=== PATIENT | male | born 1955 | race Caucasian/White ===

== ENCOUNTER → 2018-05-10 | Outpatient (CLI) | payer BC | LOC: HYPER 05-08 12:07 | DX: E11.622 Type 2 diabetes mellitus with other skin ulcer (principal); L97.812 Non-pressure chronic ulcer of other part of right lower leg with fat layer exposed; L84 Corns and callosities; D48.5 Neoplasm of uncertain behavior of skin; M19.90 Unspecified osteoarthritis, unspecified site ==

== ENCOUNTER → 2018-05-17 | Outpatient (CLI) | payer BC | LOC: HYPER 06:57 | DX: E11.622 Type 2 diabetes mellitus with other skin ulcer (principal); L97.812 Non-pressure chronic ulcer of other part of right lower leg with fat layer exposed; S60.321D Blister (nonthermal) of right thumb, subsequent encounter; L84 Corns and callosities; M19.90 Unspecified osteoarthritis, unspecified site; D48.5 Neoplasm of uncertain behavior of skin; X58.XXXD Exposure to other specified factors, subsequent encounter ==

== ENCOUNTER → 2018-05-31 | Outpatient (CLI) | payer BC | LOC: HYPER 06:49 | DX: E11.622 Type 2 diabetes mellitus with other skin ulcer (principal); L97.812 Non-pressure chronic ulcer of other part of right lower leg with fat layer exposed; S60.321D Blister (nonthermal) of right thumb, subsequent encounter; S60.420A Blister (nonthermal) of right index finger, initial encounter; L84 Corns and callosities; D48.5 Neoplasm of uncertain behavior of skin; M19.90 Unspecified osteoarthritis, unspecified site; X58.XXXA Exposure to other specified factors, initial encounter; Y93.89 Activity, other specified; Y92.89 Other specified places as the place of occurrence of the external cause; Y99.8 Other external cause status ==

== ENCOUNTER → 2018-06-14 | Outpatient (CLI) | payer BC | LOC: HYPER 06:38 | DX: E11.622 Type 2 diabetes mellitus with other skin ulcer (principal); L97.812 Non-pressure chronic ulcer of other part of right lower leg with fat layer exposed; S60.321D Blister (nonthermal) of right thumb, subsequent encounter; S60.424 Blister (nonthermal) of right ring finger; M19.90 Unspecified osteoarthritis, unspecified site; D48.5 Neoplasm of uncertain behavior of skin; X58.XXXD Exposure to other specified factors, subsequent encounter ==

== ENCOUNTER → 2018-06-28 | Outpatient (CLI) | payer BC | LOC: HYPER 07:04 | DX: E11.622 Type 2 diabetes mellitus with other skin ulcer (principal); L97.812 Non-pressure chronic ulcer of other part of right lower leg with fat layer exposed; S60.321D Blister (nonthermal) of right thumb, subsequent encounter; S60.420D Blister (nonthermal) of right index finger, subsequent encounter; R21 Rash and other nonspecific skin eruption; D48.5 Neoplasm of uncertain behavior of skin; L84 Corns and callosities; M19.90 Unspecified osteoarthritis, unspecified site; X58.XXXD Exposure to other specified factors, subsequent encounter ==

== ENCOUNTER → 2018-07-12 | Outpatient (CLI) | payer BC | LOC: HYPER 06:44 | DX: E11.622 Type 2 diabetes mellitus with other skin ulcer (principal); L97.812 Non-pressure chronic ulcer of other part of right lower leg with fat layer exposed; S60.424 Blister (nonthermal) of right ring finger; S60.321D Blister (nonthermal) of right thumb, subsequent encounter; D48.5 Neoplasm of uncertain behavior of skin; L84 Corns and callosities; M19.90 Unspecified osteoarthritis, unspecified site; X58.XXXD Exposure to other specified factors, subsequent encounter ==

== ENCOUNTER → 2018-07-26 | Outpatient (CLI) | payer BC | LOC: HYPER 06:50 | DX: E11.622 Type 2 diabetes mellitus with other skin ulcer (principal); L97.812 Non-pressure chronic ulcer of other part of right lower leg with fat layer exposed; R21 Rash and other nonspecific skin eruption; D48.5 Neoplasm of uncertain behavior of skin; M19.90 Unspecified osteoarthritis, unspecified site ==

== ENCOUNTER → 2018-08-09 | Outpatient (CLI) | payer BC | LOC: HYPER 06:49 | DX: E11.622 Type 2 diabetes mellitus with other skin ulcer (principal); L97.822 Non-pressure chronic ulcer of other part of left lower leg with fat layer exposed; R21 Rash and other nonspecific skin eruption; D48.5 Neoplasm of uncertain behavior of skin; M19.90 Unspecified osteoarthritis, unspecified site ==

== ENCOUNTER → 2018-08-23 | Outpatient (CLI) | payer BC | LOC: HYPER 06:42 | DX: E11.622 Type 2 diabetes mellitus with other skin ulcer (principal); L97.812 Non-pressure chronic ulcer of other part of right lower leg with fat layer exposed; L97.311 Non-pressure chronic ulcer of right ankle limited to breakdown of skin; R21 Rash and other nonspecific skin eruption; D48.5 Neoplasm of uncertain behavior of skin; M19.90 Unspecified osteoarthritis, unspecified site ==

== ENCOUNTER → 2018-08-30 | Outpatient (CLI) | payer BC | LOC: HYPER 06:41 | DX: E11.622 Type 2 diabetes mellitus with other skin ulcer (principal); L97.311 Non-pressure chronic ulcer of right ankle limited to breakdown of skin; L97.811 Non-pressure chronic ulcer of other part of right lower leg limited to breakdown of skin; S60.321D Blister (nonthermal) of right thumb, subsequent encounter; S60.424 Blister (nonthermal) of right ring finger; D48.5 Neoplasm of uncertain behavior of skin; M19.90 Unspecified osteoarthritis, unspecified site; R21 Rash and other nonspecific skin eruption; X58.XXXD Exposure to other specified factors, subsequent encounter ==

== ENCOUNTER → 2018-09-05 | Outpatient (CLI) | payer BC | LOC: HYPER 06:32 | DX: E11.621 Type 2 diabetes mellitus with foot ulcer (principal); E11.622 Type 2 diabetes mellitus with other skin ulcer; L97.311 Non-pressure chronic ulcer of right ankle limited to breakdown of skin; L97.812 Non-pressure chronic ulcer of other part of right lower leg with fat layer exposed; S61.001D Unspecified open wound of right thumb without damage to nail, subsequent encounter; D48.5 Neoplasm of uncertain behavior of skin; M19.90 Unspecified osteoarthritis, unspecified site; R21 Rash and other nonspecific skin eruption; X58.XXXD Exposure to other specified factors, subsequent encounter ==

== ENCOUNTER → 2018-09-20 | Outpatient (CLI) | payer BC | LOC: HYPER 06:48 | DX: E11.622 Type 2 diabetes mellitus with other skin ulcer (principal); L97.812 Non-pressure chronic ulcer of other part of right lower leg with fat layer exposed; L97.311 Non-pressure chronic ulcer of right ankle limited to breakdown of skin; S60.424 Blister (nonthermal) of right ring finger; S60.321D Blister (nonthermal) of right thumb, subsequent encounter; R21 Rash and other nonspecific skin eruption; M19.90 Unspecified osteoarthritis, unspecified site; D48.5 Neoplasm of uncertain behavior of skin; X58.XXXD Exposure to other specified factors, subsequent encounter ==

== ENCOUNTER → 2018-09-27 | Outpatient (CLI) | payer BC | LOC: HYPER 06:57 | DX: E11.622 Type 2 diabetes mellitus with other skin ulcer (principal); L97.812 Non-pressure chronic ulcer of other part of right lower leg with fat layer exposed; S60.424 Blister (nonthermal) of right ring finger; S60.321D Blister (nonthermal) of right thumb, subsequent encounter; R21 Rash and other nonspecific skin eruption; D48.5 Neoplasm of uncertain behavior of skin; M19.90 Unspecified osteoarthritis, unspecified site; X58.XXXD Exposure to other specified factors, subsequent encounter ==

== ENCOUNTER → 2018-10-18 | Outpatient (CLI) | payer BC | LOC: HYPER 06:38 | DX: E11.622 Type 2 diabetes mellitus with other skin ulcer (principal); L97.312 Non-pressure chronic ulcer of right ankle with fat layer exposed; L97.812 Non-pressure chronic ulcer of other part of right lower leg with fat layer exposed; S60.424 Blister (nonthermal) of right ring finger; S60.321D Blister (nonthermal) of right thumb, subsequent encounter; L84 Corns and callosities; D48.5 Neoplasm of uncertain behavior of skin; M19.90 Unspecified osteoarthritis, unspecified site; R21 Rash and other nonspecific skin eruption; X58.XXXD Exposure to other specified factors, subsequent encounter ==

== ENCOUNTER → 2018-11-06 | Outpatient (CLI) | payer BC | LOC: HYPER 07:05 | DX: E11.622 Type 2 diabetes mellitus with other skin ulcer (principal); L97.812 Non-pressure chronic ulcer of other part of right lower leg with fat layer exposed; L97.311 Non-pressure chronic ulcer of right ankle limited to breakdown of skin; S60.424 Blister (nonthermal) of right ring finger; S60.321D Blister (nonthermal) of right thumb, subsequent encounter; D48.5 Neoplasm of uncertain behavior of skin; L84 Corns and callosities; R21 Rash and other nonspecific skin eruption; M19.90 Unspecified osteoarthritis, unspecified site; X58.XXXD Exposure to other specified factors, subsequent encounter ==

== ENCOUNTER → 2018-11-22 | Outpatient (CLI) | payer BC | LOC: HYPER 06:57 | DX: E11.622 Type 2 diabetes mellitus with other skin ulcer (principal); L97.812 Non-pressure chronic ulcer of other part of right lower leg with fat layer exposed; L97.312 Non-pressure chronic ulcer of right ankle with fat layer exposed; L84 Corns and callosities; R21 Rash and other nonspecific skin eruption; D48.5 Neoplasm of uncertain behavior of skin; M19.90 Unspecified osteoarthritis, unspecified site ==

== ENCOUNTER → 2018-12-06 | Outpatient (CLI) | payer BC | LOC: HYPER 07:36 | DX: E11.622 Type 2 diabetes mellitus with other skin ulcer (principal); L97.812 Non-pressure chronic ulcer of other part of right lower leg with fat layer exposed; L97.312 Non-pressure chronic ulcer of right ankle with fat layer exposed; L84 Corns and callosities; D48.5 Neoplasm of uncertain behavior of skin; M19.90 Unspecified osteoarthritis, unspecified site; R21 Rash and other nonspecific skin eruption ==

== ENCOUNTER → 2018-12-27 | Outpatient (CLI) | payer BC | LOC: HYPER 10:15 | DX: E11.622 Type 2 diabetes mellitus with other skin ulcer (principal); L97.812 Non-pressure chronic ulcer of other part of right lower leg with fat layer exposed; L97.312 Non-pressure chronic ulcer of right ankle with fat layer exposed; D48.5 Neoplasm of uncertain behavior of skin; L84 Corns and callosities; M19.90 Unspecified osteoarthritis, unspecified site; R21 Rash and other nonspecific skin eruption ==

== ENCOUNTER → 2019-01-17 | Outpatient (CLI) | payer BC | LOC: HYPER 11:22 | DX: E11.622 Type 2 diabetes mellitus with other skin ulcer (principal); L97.812 Non-pressure chronic ulcer of other part of right lower leg with fat layer exposed; L97.312 Non-pressure chronic ulcer of right ankle with fat layer exposed; L84 Corns and callosities; D48.5 Neoplasm of uncertain behavior of skin; M19.90 Unspecified osteoarthritis, unspecified site; R21 Rash and other nonspecific skin eruption ==

== ENCOUNTER → 2019-02-08 | Outpatient (CLI) | payer BC | LOC: HYPER 08:32 | DX: E11.622 Type 2 diabetes mellitus with other skin ulcer (principal); L97.812 Non-pressure chronic ulcer of other part of right lower leg with fat layer exposed; L97.312 Non-pressure chronic ulcer of right ankle with fat layer exposed; D48.5 Neoplasm of uncertain behavior of skin; M19.90 Unspecified osteoarthritis, unspecified site; R21 Rash and other nonspecific skin eruption ==

== ENCOUNTER → 2019-03-14 | Outpatient (CLI) | payer BC | LOC: HYPER 10:05 | DX: E11.622 Type 2 diabetes mellitus with other skin ulcer (principal); L97.312 Non-pressure chronic ulcer of right ankle with fat layer exposed; L97.812 Non-pressure chronic ulcer of other part of right lower leg with fat layer exposed; R21 Rash and other nonspecific skin eruption; D48.5 Neoplasm of uncertain behavior of skin; M19.90 Unspecified osteoarthritis, unspecified site ==

== ENCOUNTER → 2019-03-28 | Outpatient (CLI) | payer BC | LOC: HYPER 09:56 | DX: E11.622 Type 2 diabetes mellitus with other skin ulcer (principal); L97.812 Non-pressure chronic ulcer of other part of right lower leg with fat layer exposed; L97.312 Non-pressure chronic ulcer of right ankle with fat layer exposed; S80.11XD Contusion of right lower leg, subsequent encounter; R21 Rash and other nonspecific skin eruption; D48.5 Neoplasm of uncertain behavior of skin; M19.90 Unspecified osteoarthritis, unspecified site; X58.XXXD Exposure to other specified factors, subsequent encounter ==

== ENCOUNTER → 2019-04-11 | Outpatient (CLI) | payer BC | LOC: HYPER 09:52 | DX: E11.622 Type 2 diabetes mellitus with other skin ulcer (principal); L97.312 Non-pressure chronic ulcer of right ankle with fat layer exposed; L97.812 Non-pressure chronic ulcer of other part of right lower leg with fat layer exposed; R21 Rash and other nonspecific skin eruption; D48.5 Neoplasm of uncertain behavior of skin; M19.90 Unspecified osteoarthritis, unspecified site ==

== ENCOUNTER → 2019-04-25 | Outpatient (CLI) | payer BC | LOC: HYPER 10:04 | DX: S81.802A Unspecified open wound, left lower leg, initial encounter (principal); E11.622 Type 2 diabetes mellitus with other skin ulcer; L97.812 Non-pressure chronic ulcer of other part of right lower leg with fat layer exposed; L97.312 Non-pressure chronic ulcer of right ankle with fat layer exposed; D48.5 Neoplasm of uncertain behavior of skin; R21 Rash and other nonspecific skin eruption; X58.XXXA Exposure to other specified factors, initial encounter; Y93.89 Activity, other specified; Y92.89 Other specified places as the place of occurrence of the external cause; Y99.8 Other external cause status; M19.90 Unspecified osteoarthritis, unspecified site ==

== ENCOUNTER → 2019-05-09 | Outpatient (CLI) | payer BC | LOC: HYPER 10:24 | DX: E11.622 Type 2 diabetes mellitus with other skin ulcer (principal); L97.812 Non-pressure chronic ulcer of other part of right lower leg with fat layer exposed; L97.312 Non-pressure chronic ulcer of right ankle with fat layer exposed; L97.211 Non-pressure chronic ulcer of right calf limited to breakdown of skin; R21 Rash and other nonspecific skin eruption; D48.5 Neoplasm of uncertain behavior of skin; M19.90 Unspecified osteoarthritis, unspecified site ==

== ENCOUNTER → 2019-05-23 | Outpatient (CLI) | payer BC | LOC: HYPER 09:37 | DX: E11.622 Type 2 diabetes mellitus with other skin ulcer (principal); L97.312 Non-pressure chronic ulcer of right ankle with fat layer exposed; L97.211 Non-pressure chronic ulcer of right calf limited to breakdown of skin; L97.822 Non-pressure chronic ulcer of other part of left lower leg with fat layer exposed; S80.11XD Contusion of right lower leg, subsequent encounter; L84 Corns and callosities; R21 Rash and other nonspecific skin eruption; D48.5 Neoplasm of uncertain behavior of skin; M19.90 Unspecified osteoarthritis, unspecified site; W22.8XXD Striking against or struck by other objects, subsequent encounter ==

== ENCOUNTER → 2019-06-06 | Outpatient (CLI) | payer BC | LOC: HYPER 09:32 | DX: E11.622 Type 2 diabetes mellitus with other skin ulcer (principal); L97.822 Non-pressure chronic ulcer of other part of left lower leg with fat layer exposed; L97.312 Non-pressure chronic ulcer of right ankle with fat layer exposed; L97.212 Non-pressure chronic ulcer of right calf with fat layer exposed; S80.11XD Contusion of right lower leg, subsequent encounter; L84 Corns and callosities; R21 Rash and other nonspecific skin eruption; M19.90 Unspecified osteoarthritis, unspecified site; D48.5 Neoplasm of uncertain behavior of skin; X58.XXXD Exposure to other specified factors, subsequent encounter ==

== ENCOUNTER → 2019-06-20 | Outpatient (CLI) | payer BC | LOC: HYPER 09:43 | DX: E11.622 Type 2 diabetes mellitus with other skin ulcer (principal); L97.822 Non-pressure chronic ulcer of other part of left lower leg with fat layer exposed; L97.312 Non-pressure chronic ulcer of right ankle with fat layer exposed; L97.212 Non-pressure chronic ulcer of right calf with fat layer exposed; S80.11XD Contusion of right lower leg, subsequent encounter; L84 Corns and callosities; R21 Rash and other nonspecific skin eruption; D48.5 Neoplasm of uncertain behavior of skin; M19.90 Unspecified osteoarthritis, unspecified site; X58.XXXD Exposure to other specified factors, subsequent encounter ==

== ENCOUNTER → 2019-07-08 | Outpatient (CLI) | payer BC | LOC: HYPER 14:39 | DX: E11.622 Type 2 diabetes mellitus with other skin ulcer (principal); L97.812 Non-pressure chronic ulcer of other part of right lower leg with fat layer exposed; L97.312 Non-pressure chronic ulcer of right ankle with fat layer exposed; L97.822 Non-pressure chronic ulcer of other part of left lower leg with fat layer exposed; L97.211 Non-pressure chronic ulcer of right calf limited to breakdown of skin; D48.5 Neoplasm of uncertain behavior of skin; R21 Rash and other nonspecific skin eruption; L84 Corns and callosities; M19.90 Unspecified osteoarthritis, unspecified site ==

== ENCOUNTER → 2019-07-25 | Outpatient (CLI) | payer BC | LOC: HYPER 08:34 | DX: E11.622 Type 2 diabetes mellitus with other skin ulcer (principal); L97.212 Non-pressure chronic ulcer of right calf with fat layer exposed; L97.312 Non-pressure chronic ulcer of right ankle with fat layer exposed; L97.822 Non-pressure chronic ulcer of other part of left lower leg with fat layer exposed; S80.11XD Contusion of right lower leg, subsequent encounter; L84 Corns and callosities; R21 Rash and other nonspecific skin eruption; D48.5 Neoplasm of uncertain behavior of skin; M19.90 Unspecified osteoarthritis, unspecified site; X58.XXXD Exposure to other specified factors, subsequent encounter ==

== ENCOUNTER 2019-08-22 11:28 | Emergency (ER) | payer BC ==
[~2019-08-22] VITALS: Ht 185.4 cm; Wt 113.4 kg
[2019-08-22] MEDS ORDERED: PEN NEEDLE1 EAC4 (11:53)
[2019-08-22] MEDS ORDERED: HUMALOG KW100 UNIT/1 SUBQ (11:53)
[2019-08-22 13:36] VITALS: BP 179/113
--- NOTE | 2019-08-24 11:44 | EKG ---
[facility] [place] [address] ELECTROCARDIOGRAM REPORT Name: GEOFFIJEOMA Evangelista Room #: DEP [facility]#: [id number] Admission: 08/22/19 Attend Phys: Discharge: 08/22/19 Date of : 51 Report #: [id number] THIS REPORT FOR: cc: Belinda Rock MD, Julie MD Couchonnal,Trey Carlos MD ~ THIS REPORT FOR: //name// [facility] ED Test Date: 2019-08-22 Test Time: 11:35:03 Pat Name: IJEOMA TELLEZ Department: Room: Gender: [employer]: [facility] : 1955 Requested By: Richard Sanchez Order Number: [id number] MD: Trey Disla Measurements Intervals Noti Rate: 96 P: 28 AK: 144 QRS: 4 QRSD: 90 T: 136 QT: 373 QTc: 472 Interpretive Statements Sinus rhythm Left atrial enlargement Anteroseptal infarct, old No previous ECG available for comparison Electronically Signed On 08-24-2019 11:43:03 CDT by Trey Disla [email or web address] <ELECTRONICALLY SIGNED> By: Trey Disla MD 08/24/19 1143 [id number] 1135 Trey Disla MD /EPI
== END 2019-08-22 13:40 | disposition home or self-care (01) ==
LOC: ER 11:28
DX: E11.649 Type 2 diabetes mellitus with hypoglycemia without coma (principal); I10 Essential (primary) hypertension; R41.0 Disorientation, unspecified; Z79.4 Long term (current) use of insulin

== ENCOUNTER → 2019-08-22 | Outpatient (CLI) | payer BC ==
[~2019-08-22] MED LIST: HUMALOG KW100 UNIT/1 SUBQ; PEN NEEDLE1 EAC4
== END ==
LOC: HYPER 09:37
PROVIDERS: ATTEND Emergency Medicine
DX: E11.622 Type 2 diabetes mellitus with other skin ulcer (principal); L97.812 Non-pressure chronic ulcer of other part of right lower leg with fat layer exposed; L97.822 Non-pressure chronic ulcer of other part of left lower leg with fat layer exposed; L97.312 Non-pressure chronic ulcer of right ankle with fat layer exposed; L97.211 Non-pressure chronic ulcer of right calf limited to breakdown of skin; S80.11XD Contusion of right lower leg, subsequent encounter; D48.5 Neoplasm of uncertain behavior of skin; R21 Rash and other nonspecific skin eruption; M19.90 Unspecified osteoarthritis, unspecified site; X58.XXXD Exposure to other specified factors, subsequent encounter

== ENCOUNTER → 2019-10-02 | Outpatient (CLI) | payer BC | LOC: HYPER 10:40 | PROVIDERS: ATTEND Emergency Medicine | DX: E11.622 Type 2 diabetes mellitus with other skin ulcer (principal); L97.212 Non-pressure chronic ulcer of right calf with fat layer exposed; L97.312 Non-pressure chronic ulcer of right ankle with fat layer exposed; L97.822 Non-pressure chronic ulcer of other part of left lower leg with fat layer exposed; S80.11XD Contusion of right lower leg, subsequent encounter; L84 Corns and callosities; R21 Rash and other nonspecific skin eruption; D48.5 Neoplasm of uncertain behavior of skin; M19.90 Unspecified osteoarthritis, unspecified site; X58.XXXD Exposure to other specified factors, subsequent encounter ==

== ENCOUNTER → 2019-10-16 | Outpatient (CLI) | payer BC | LOC: HYPER 09:04 | PROVIDERS: ATTEND Emergency Medicine Emergency Medical Services | DX: E11.622 Type 2 diabetes mellitus with other skin ulcer (principal); L97.212 Non-pressure chronic ulcer of right calf with fat layer exposed; L97.312 Non-pressure chronic ulcer of right ankle with fat layer exposed; L97.822 Non-pressure chronic ulcer of other part of left lower leg with fat layer exposed; S80.11XD Contusion of right lower leg, subsequent encounter; L84 Corns and callosities; R21 Rash and other nonspecific skin eruption; D48.5 Neoplasm of uncertain behavior of skin; M19.90 Unspecified osteoarthritis, unspecified site; X58.XXXD Exposure to other specified factors, subsequent encounter ==

== ENCOUNTER → 2019-10-31 | Outpatient (CLI) | payer BC | LOC: HYPER 09:29 | PROVIDERS: ATTEND Emergency Medicine | DX: E11.622 Type 2 diabetes mellitus with other skin ulcer (principal); L97.212 Non-pressure chronic ulcer of right calf with fat layer exposed; L97.312 Non-pressure chronic ulcer of right ankle with fat layer exposed; L97.822 Non-pressure chronic ulcer of other part of left lower leg with fat layer exposed; S80.11XD Contusion of right lower leg, subsequent encounter; S81.802D Unspecified open wound, left lower leg, subsequent encounter; L84 Corns and callosities; R21 Rash and other nonspecific skin eruption; D48.5 Neoplasm of uncertain behavior of skin; M19.90 Unspecified osteoarthritis, unspecified site; X58.XXXD Exposure to other specified factors, subsequent encounter ==

== ENCOUNTER → 2019-12-05 | Outpatient (CLI) | payer BC | LOC: HYPER 09:50 | PROVIDERS: ATTEND Emergency Medicine | DX: E11.622 Type 2 diabetes mellitus with other skin ulcer (principal); L97.812 Non-pressure chronic ulcer of other part of right lower leg with fat layer exposed; L97.312 Non-pressure chronic ulcer of right ankle with fat layer exposed; L97.212 Non-pressure chronic ulcer of right calf with fat layer exposed; L97.822 Non-pressure chronic ulcer of other part of left lower leg with fat layer exposed; S80.11XD Contusion of right lower leg, subsequent encounter; R21 Rash and other nonspecific skin eruption; L84 Corns and callosities; D48.5 Neoplasm of uncertain behavior of skin; I87.8 Other specified disorders of veins; M19.90 Unspecified osteoarthritis, unspecified site; X58.XXXD Exposure to other specified factors, subsequent encounter ==

== ENCOUNTER → 2019-12-26 | Outpatient (CLI) | payer BC | LOC: HYPER 09:23 | PROVIDERS: ATTEND Emergency Medicine | DX: E11.622 Type 2 diabetes mellitus with other skin ulcer (principal); L97.212 Non-pressure chronic ulcer of right calf with fat layer exposed; L97.312 Non-pressure chronic ulcer of right ankle with fat layer exposed; L97.822 Non-pressure chronic ulcer of other part of left lower leg with fat layer exposed; S80.11XD Contusion of right lower leg, subsequent encounter; R21 Rash and other nonspecific skin eruption; L84 Corns and callosities; D48.5 Neoplasm of uncertain behavior of skin; I87.8 Other specified disorders of veins; M19.90 Unspecified osteoarthritis, unspecified site; X58.XXXD Exposure to other specified factors, subsequent encounter ==

== ENCOUNTER → 2020-01-16 | Outpatient (CLI) | payer BC | LOC: HYPER 09:14 | PROVIDERS: ATTEND Emergency Medicine | DX: E11.622 Type 2 diabetes mellitus with other skin ulcer (principal); L97.212 Non-pressure chronic ulcer of right calf with fat layer exposed; L97.812 Non-pressure chronic ulcer of other part of right lower leg with fat layer exposed; L97.312 Non-pressure chronic ulcer of right ankle with fat layer exposed; L97.822 Non-pressure chronic ulcer of other part of left lower leg with fat layer exposed; S81.801D Unspecified open wound, right lower leg, subsequent encounter; S80.11XD Contusion of right lower leg, subsequent encounter; E11.628 Type 2 diabetes mellitus with other skin complications; R21 Rash and other nonspecific skin eruption; D48.5 Neoplasm of uncertain behavior of skin; M19.90 Unspecified osteoarthritis, unspecified site; X58.XXXD Exposure to other specified factors, subsequent encounter ==

== ENCOUNTER → 2020-02-11 | Outpatient (CLI) | payer BC | LOC: HYPER 09:17 | PROVIDERS: ATTEND Emergency Medicine | DX: E11.622 Type 2 diabetes mellitus with other skin ulcer (principal); L97.212 Non-pressure chronic ulcer of right calf with fat layer exposed; L97.812 Non-pressure chronic ulcer of other part of right lower leg with fat layer exposed; L97.312 Non-pressure chronic ulcer of right ankle with fat layer exposed; L97.822 Non-pressure chronic ulcer of other part of left lower leg with fat layer exposed; L84 Corns and callosities; S81.801D Unspecified open wound, right lower leg, subsequent encounter; S80.11XD Contusion of right lower leg, subsequent encounter; R21 Rash and other nonspecific skin eruption; D48.5 Neoplasm of uncertain behavior of skin; M19.90 Unspecified osteoarthritis, unspecified site; X58.XXXD Exposure to other specified factors, subsequent encounter ==

== ENCOUNTER → 2020-03-12 | Outpatient (CLI) | payer BC | LOC: HYPER 08:48 | PROVIDERS: ATTEND Emergency Medicine | DX: E11.622 Type 2 diabetes mellitus with other skin ulcer (principal); L97.212 Non-pressure chronic ulcer of right calf with fat layer exposed; L97.812 Non-pressure chronic ulcer of other part of right lower leg with fat layer exposed; L97.312 Non-pressure chronic ulcer of right ankle with fat layer exposed; L97.822 Non-pressure chronic ulcer of other part of left lower leg with fat layer exposed; L84 Corns and callosities; S80.11XD Contusion of right lower leg, subsequent encounter; R21 Rash and other nonspecific skin eruption; D48.5 Neoplasm of uncertain behavior of skin; M19.90 Unspecified osteoarthritis, unspecified site; X58.XXXD Exposure to other specified factors, subsequent encounter ==

== ENCOUNTER → 2020-03-19 | Outpatient (CLI) | payer BC | LOC: HYPER 09:24 | PROVIDERS: ATTEND Emergency Medicine | DX: E11.622 Type 2 diabetes mellitus with other skin ulcer (principal); L97.212 Non-pressure chronic ulcer of right calf with fat layer exposed; L97.812 Non-pressure chronic ulcer of other part of right lower leg with fat layer exposed; L97.312 Non-pressure chronic ulcer of right ankle with fat layer exposed; L84 Corns and callosities; S80.11XD Contusion of right lower leg, subsequent encounter; R21 Rash and other nonspecific skin eruption; D48.5 Neoplasm of uncertain behavior of skin; M19.90 Unspecified osteoarthritis, unspecified site; X58.XXXD Exposure to other specified factors, subsequent encounter ==

== ENCOUNTER → 2020-04-13 | Outpatient (CLI) | payer BC | LOC: HYPER 11:39 | PROVIDERS: ATTEND Emergency Medicine | DX: E11.622 Type 2 diabetes mellitus with other skin ulcer (principal); L97.812 Non-pressure chronic ulcer of other part of right lower leg with fat layer exposed; L97.312 Non-pressure chronic ulcer of right ankle with fat layer exposed; L97.212 Non-pressure chronic ulcer of right calf with fat layer exposed; L84 Corns and callosities; S80.11XD Contusion of right lower leg, subsequent encounter; R21 Rash and other nonspecific skin eruption; D48.5 Neoplasm of uncertain behavior of skin; M19.90 Unspecified osteoarthritis, unspecified site; X58.XXXD Exposure to other specified factors, subsequent encounter ==

== ENCOUNTER → 2020-05-07 | Outpatient (CLI) | payer BC | LOC: HYPER 13:24 | PROVIDERS: ATTEND Emergency Medicine | DX: E11.622 Type 2 diabetes mellitus with other skin ulcer (principal); L97.212 Non-pressure chronic ulcer of right calf with fat layer exposed; L97.812 Non-pressure chronic ulcer of other part of right lower leg with fat layer exposed; L97.312 Non-pressure chronic ulcer of right ankle with fat layer exposed; L84 Corns and callosities; S80.11XD Contusion of right lower leg, subsequent encounter; R21 Rash and other nonspecific skin eruption; D48.5 Neoplasm of uncertain behavior of skin; M19.90 Unspecified osteoarthritis, unspecified site; X58.XXXD Exposure to other specified factors, subsequent encounter ==

== ENCOUNTER → 2020-05-28 | Outpatient (CLI) | payer BC | LOC: HYPER 08:56 | PROVIDERS: ATTEND Emergency Medicine Emergency Medical Services | DX: E11.622 Type 2 diabetes mellitus with other skin ulcer (principal); L97.212 Non-pressure chronic ulcer of right calf with fat layer exposed; L97.812 Non-pressure chronic ulcer of other part of right lower leg with fat layer exposed; L97.312 Non-pressure chronic ulcer of right ankle with fat layer exposed; L84 Corns and callosities; S80.11XD Contusion of right lower leg, subsequent encounter; R21 Rash and other nonspecific skin eruption; D48.5 Neoplasm of uncertain behavior of skin; M19.90 Unspecified osteoarthritis, unspecified site; X58.XXXD Exposure to other specified factors, subsequent encounter ==

== ENCOUNTER → 2020-06-15 | Outpatient (CLI) | payer BC | LOC: HYPER 11:29 | PROVIDERS: ATTEND Emergency Medicine | DX: E11.622 Type 2 diabetes mellitus with other skin ulcer (principal); L97.212 Non-pressure chronic ulcer of right calf with fat layer exposed; L97.812 Non-pressure chronic ulcer of other part of right lower leg with fat layer exposed; L97.312 Non-pressure chronic ulcer of right ankle with fat layer exposed; L84 Corns and callosities; S80.11XD Contusion of right lower leg, subsequent encounter; R21 Rash and other nonspecific skin eruption; D48.5 Neoplasm of uncertain behavior of skin; M19.90 Unspecified osteoarthritis, unspecified site; X58.XXXD Exposure to other specified factors, subsequent encounter ==

== ENCOUNTER → 2020-08-12 | Outpatient (CLI) | payer BC | LOC: HYPER 07:58 | PROVIDERS: ATTEND Emergency Medicine | DX: E11.622 Type 2 diabetes mellitus with other skin ulcer (principal); L97.212 Non-pressure chronic ulcer of right calf with fat layer exposed; L97.812 Non-pressure chronic ulcer of other part of right lower leg with fat layer exposed; L84 Corns and callosities; S80.11XD Contusion of right lower leg, subsequent encounter; R21 Rash and other nonspecific skin eruption; D48.5 Neoplasm of uncertain behavior of skin; M19.90 Unspecified osteoarthritis, unspecified site; X58.XXXD Exposure to other specified factors, subsequent encounter ==

== ENCOUNTER → 2020-09-09 | Outpatient (CLI) | payer BC | LOC: HYPER 07:57 | PROVIDERS: ATTEND Emergency Medicine | DX: E11.622 Type 2 diabetes mellitus with other skin ulcer (principal); L97.212 Non-pressure chronic ulcer of right calf with fat layer exposed; L97.812 Non-pressure chronic ulcer of other part of right lower leg with fat layer exposed; L97.822 Non-pressure chronic ulcer of other part of left lower leg with fat layer exposed; S80.11XD Contusion of right lower leg, subsequent encounter; L84 Corns and callosities; R21 Rash and other nonspecific skin eruption; D48.5 Neoplasm of uncertain behavior of skin; M19.90 Unspecified osteoarthritis, unspecified site; X58.XXXD Exposure to other specified factors, subsequent encounter ==

== ENCOUNTER → 2020-09-30 | Outpatient (CLI) | payer BC | LOC: HYPER 08:51 | PROVIDERS: ATTEND Emergency Medicine Emergency Medical Services | DX: E11.622 Type 2 diabetes mellitus with other skin ulcer (principal); L97.812 Non-pressure chronic ulcer of other part of right lower leg with fat layer exposed; S80.11XD Contusion of right lower leg, subsequent encounter; L84 Corns and callosities; R21 Rash and other nonspecific skin eruption; D48.5 Neoplasm of uncertain behavior of skin; M19.90 Unspecified osteoarthritis, unspecified site; X58.XXXD Exposure to other specified factors, subsequent encounter ==

== ENCOUNTER → 2020-10-21 | Outpatient (CLI) | payer BC | LOC: HYPER 07:55 | PROVIDERS: ATTEND Emergency Medicine | DX: E11.622 Type 2 diabetes mellitus with other skin ulcer (principal); L97.812 Non-pressure chronic ulcer of other part of right lower leg with fat layer exposed; I87.8 Other specified disorders of veins; S80.811D Abrasion, right lower leg, subsequent encounter; D48.5 Neoplasm of uncertain behavior of skin; R21 Rash and other nonspecific skin eruption; M19.90 Unspecified osteoarthritis, unspecified site; Z79.01 Long term (current) use of anticoagulants; Z79.899 Other long term (current) drug therapy; X58.XXXD Exposure to other specified factors, subsequent encounter ==

== ENCOUNTER → 2020-11-18 | Outpatient (CLI) | payer BC | LOC: HYPER 11-11 13:00 | PROVIDERS: ATTEND Emergency Medicine | DX: E11.622 Type 2 diabetes mellitus with other skin ulcer (principal); L97.812 Non-pressure chronic ulcer of other part of right lower leg with fat layer exposed; S80.11XD Contusion of right lower leg, subsequent encounter; D48.5 Neoplasm of uncertain behavior of skin; R21 Rash and other nonspecific skin eruption; M19.90 Unspecified osteoarthritis, unspecified site; Z79.01 Long term (current) use of anticoagulants; Z79.899 Other long term (current) drug therapy; X58.XXXD Exposure to other specified factors, subsequent encounter ==

== ENCOUNTER → 2020-12-23 | Outpatient (CLI) | payer BC | LOC: HYPER 08:39 | PROVIDERS: ATTEND Emergency Medicine | DX: E11.622 Type 2 diabetes mellitus with other skin ulcer (principal); L97.812 Non-pressure chronic ulcer of other part of right lower leg with fat layer exposed; L84 Corns and callosities; S80.11XD Contusion of right lower leg, subsequent encounter; D48.5 Neoplasm of uncertain behavior of skin; R21 Rash and other nonspecific skin eruption; M19.90 Unspecified osteoarthritis, unspecified site; Z79.01 Long term (current) use of anticoagulants; X58.XXXD Exposure to other specified factors, subsequent encounter ==